=== PATIENT | female | born 1970 | race African-American/Black ===

== ENCOUNTER 2019-01-26 01:37 | Emergency (ER) | payer OTHER ==
[~2019-01-26] VITALS: Ht 175.3 cm; Wt 67.3 kg
[2019-01-26 01:52] VITALS: BP 162/84
== END 2019-01-26 02:24 | disposition left against medical advice (07) ==
LOC: ER 01:38
DX: H57.12 Ocular pain, left eye (principal); Z53.21 Procedure and treatment not carried out due to patient leaving prior to being seen by health care provider; Z88.1 Allergy status to other antibiotic agents